=== PATIENT | female | born 1985 | race African-American/Black ===

== ENCOUNTER 2022-04-28 12:16 | Emergency (ER) | payer OTHER ==
[2022-04-28 12:30] VITALS: RESP 20; TEMP 98.3; BMI 37.5
[2022-04-28] MEDS ORDERED: KETOROLAC TROMETHAMINE 30 MG/1 ML VIAL IM ONE (12:57)
[2022-04-28] MEDS ORDERED: LIDOCAINE 5% TOPICAL PATCH TP ONE (12:57)
[2022-04-28] MEDS ORDERED: METHOCARBAMOL 500 MG TABLET PO ONE (12:57)
[2022-04-28] MEDS ORDERED: METHOCARBAMOL 500 MG TABLET ONE (13:01)
[2022-04-28] MEDS ORDERED: KETOROLAC TROMETHAMINE 30 MG/1 ML VIAL ONE (13:01)
[2022-04-28] MEDS ORDERED: LIDOCAINE 5% TOPICAL PATCH ONE (13:01)
[2022-04-28 13:43] VITALS: BP 161/119; PULSE 82
[2022-04-28] MEDS ORDERED: LIDOCAINE PATCH REMOVAL MC SCH (22:00)
== END 2022-04-28 13:52 | disposition home or self-care (01) ==
LOC: JER 12:16
PROC: 3E0233Z Introduction of Anti-inflammatory into Muscle, Percutaneous Approach (ICD-10-PCS; principal; 2022-04-28)
DX: S39.012A Strain of muscle, fascia and tendon of lower back, initial encounter (principal); M62.830 Muscle spasm of back; V49.50XA Passenger injured in collision with unspecified motor vehicles in traffic accident, initial encounter
CPT/HCPCS: 99284-25